=== PATIENT | male | born 1995 ===

== ENCOUNTER 2018-01-05 15:51 | Emergency (ER) | payer SELFPAY ==
[2018-01-05 16:00] VITALS: RESP 18; TEMP 98.4; O2SAT 97
--- NOTE | 2018-01-05 16:08 | C.PDOC ---
History Of Present Illness Patient is a 22 y/o M presenting with foreign body to L ear. He reports that he was cleaning his ear with a qtip this morning when the tip broke off. No other complaints. Time Seen by Provider: 01/05/18 16:02 Chief Complaint (Nursing): ENT Problem Past Medical History Vital Signs: Last Vital Signs Temp 98.4 F 01/05/18 15:59 Pulse 58 L 01/05/18 15:59 Resp 18 01/05/18 15:59 BP 120/89 01/05/18 15:59 Pulse Ox 97 01/05/18 15:59 Family History: States: No Known Family Hx - Social History Hx Alcohol Use: No Hx Substance Use: No - Immunization History Hx Tetanus Toxoid Vaccination: No Hx Influenza Vaccination: No Hx Pneumococcal Vaccination: No Review Of Systems Constitutional: Negative for: Fever, Chills ENT: Positive for: Other (foreign body L ear). Negative for: Throat Pain Cardiovascular: Negative for: Chest Pain Respiratory: Negative for: Cough Gastrointestinal: Negative for: Nausea, Vomiting, Abdominal Pain, Diarrhea, Constipation Physical Exam - Physical Exam Appears: Well, Non-toxic, No Acute Distress Skin: Normal Color, Warm, Dry Head: Atraumatic, Normacephalic Eye(s): bilateral: Normal Inspection, PERRL, EOMI Ear(s): Right: Normal, Bilateral: Other (q tip to L ear) Nose: Normal Oral Mucosa: Moist Tongue: Normal Appearing Lips: Normal Appearing ED Course And Treatment O2 Sat by Pulse Oximetry: 97 Medical Decision Making Medical Decision Making: Qtip was removed from L ear with aligator forceps. TM is intact. Canal mildly erythematous likely from trauma. Denies ear pain. Will dc Disposition - Disposition Disposition: HOME/ ROUTINE Disposition Time: 16:09 Condition: GOOD Additional Instructions: Follow-up with PMD within 2 days. Do not put qtips in your ears. Return to ED if condition worsens. Instructions: Removal of Foreign Body in Ear, Child - Clinical Impression Clinical Impression: Foreign body in ear
[2018-01-05 16:42] VITALS: BP 145/87; PULSE 65
== END 2018-01-05 16:35 | disposition home or self-care (01) ==
LOC: C.ER 15:51
DX: T16.2XXA Foreign body in left ear, initial encounter (principal); X58.XXXA Exposure to other specified factors, initial encounter